=== PATIENT | male | born 1950 | race Two or more races ===

== ENCOUNTER 2017-02-04 16:20 | Emergency (ER) | payer SELFPAY ==
[~2017-02-04] VITALS: Ht 162.6 cm; Wt 65.8 kg
[~2017-02-04 16:20] MED LIST: NKM
[2017-02-04 16:30] VITALS: BP 127/86
[2017-02-04] MEDS ORDERED: Metoclopramide 10mg/2ml Inj IVP ONE (16:30)
[2017-02-04] MEDS ORDERED: Famotidine 20 MG/ 2ML VIAL IVP ONE (16:30)
[2017-02-04] MEDS ORDERED: DiphenhydrAMINE 50mg/ml Inj IVP ONE (16:30)
--- NOTE | 2017-02-04 16:32 | Emergency Room Report ---
History of Present Illness General Chief Complaint: Abdominal Pain Source: Patient Present Illness HPI Patient brought in from the streets by EMS after drinking a large quantity of alcohol for the last several days. He's been vomiting. He says he has some pain in his abdomen also. Epigastric. Does not radiate. Pain is 7/10. Constant. His last drink was 10 AM this morning. Has not vomited blood but in the past he has been seen for problems with vomiting blood. He does have diarrhea this watery. Allergies: Coded Allergies: No Known Allergies (Unverified , 02/04/17) Patient History Past Medical History: see triage record Social History: Reports: alcohol use Social History Narrative streets Reviewed Nursing Documentation: PMH: Agreed, PSxH: Agreed Nursing Documentation-PMH Past Medical History: No Stated History Review of Systems All Other Systems: negative except mentioned in HPI Physical Exam Vital Signs Date Time Temp Pulse Resp B/P Pulse Ox O2 Delivery O2 Flow Rate FiO2 02/04/17 16:14 98.6 120 20 136/80 97 Room Air Sp02 EP Interpretation: reviewed, normal General Appearance: no apparent distress, GCS 15, other - dishevelled Head: normocephalic Eyes: bilateral eye PERRL, bilateral eye Scleral Injection ENT: moist mucus membranes Neck: supple Respiratory: lungs clear, normal breath sounds Cardiovascular #1: regular rate, rhythm Cardiovascular #2: 2+ radial (R) Gastrointestinal: normal bowel sounds, no mass, no guarding, no rebound, distended, tenderness Musculoskeletal: back normal, gait/station normal, normal range of motion Neurologic: alert, oriented x3, grossly normal Psychiatric: mood/affect normal Skin: normal inspection, warm/dry Medical Decision Making Diagnostic Impression: Primary Impression: Abdominal pain Additional Impressions: Alcohol intoxication Hypokalemia ER Course Patient presents with epigastric pain and vomiting after drinking large quantities of alcohol. Differential includes gastritis, GERD, pancreatitis, collar disease, diverticulitis amongst others. He claims is not bleeding this time. Evaluation will be with EKG, abdominal series and labs. He'll be treated IV hydration, Pepcid, Reglan and Benadryl. Laboratory Tests Test 02/04/17 16:25 02/04/17 21:10 White Blood Count 8.7 K/UL (4.8-10.8) Red Blood Count 5.26 M/UL (4.70-6.10) Hemoglobin 14.5 G/DL (14.2-18.0) Hematocrit 43.5 % (42.0-52.0) Mean Corpuscular Volume 83 FL (80-99) Mean Corpuscular Hemoglobin 27.5 PG (27.0-31.0) Mean Corpuscular Hemoglobin Concent 33.3 G/DL (32.0-36.0) Red Cell Distribution Width 15.6 % (11.6-14.8) H Platelet Count 258 K/UL (150-450) Mean Platelet Volume 7.7 FL (6.5-10.1) Neutrophils (%) (Auto) 76.1 % (45.0-75.0) H Lymphocytes (%) (Auto) 18.6 % (20.0-45.0) L Monocytes (%) (Auto) 4.5 % (1.0-10.0) Eosinophils (%) (Auto) 0.0 % (0.0-3.0) Basophils (%) (Auto) 0.7 % (0.0-2.0) Prothrombin Time 9.5 SEC (9.30-11.50) Prothrombin Time INR 0.9 (0.9-1.1) PTT 25 SEC (23-33) Sodium Level 138 mEQ/L (135-145) Potassium Level 3.1 mEQ/L (3.4-4.9) L Chloride Level 89 mEQ/L (98-107) L Carbon Dioxide Level 23 mEQ/L (20-30) Anion Gap 26 (5-15) H Blood Urea Nitrogen 17 mg/dL (7-23) Creatinine 1.4 mg/dL (0.7-1.2) H Estimate Glomerular Filtration Rate 50.9 mL/min (>60) Glucose Level 148 mg/dL (74-106) H Calcium Level 8.7 mg/dL (8.6-10.2) Total Bilirubin 0.7 mg/dL (0.0-1.2) Aspartate Amino Transferase (AST) 48 U/L (5-40) H Alanine Aminotransferase (ALT) 26 U/L (3-41) Alkaline Phosphatase 126 U/L (40-129) Total Creatine Kinase 227 U/L (38-174) H Troponin I < 0.30 ng/mL (<=0.30) Total Protein 8.1 g/dL (6.6-8.7) Albumin 4.2 g/dL (3.5-5.2) Globulin 3.9 g/dL Albumin/Globulin Ratio 1.0 (1.0-2.7) Lipase 67 U/L (< 60) H Serum Alcohol 330 mg/dL Urine Color Yellow Urine Appearance Clear Urine pH 6 (4.5-8.0) Urine Specific [place] 1.020 (1.005-1.035) Urine Protein 3+ (NEGATIVE) H Urine Glucose (UA) Negative (NEGATIVE) Urine Ketones 1+ (NEGATIVE) H Urine Occult Blood 3+ (NEGATIVE) H Urine Nitrite Negative (NEGATIVE) Urine Bilirubin Negative (NEGATIVE) Urine Urobilinogen Normal MG/DL (0.0-1.0) Urine Leukocyte Esterase Negative (NEGATIVE) Urine RBC Pending Urine WBC Pending Urine Squamous Epithelial Cells Pending Urine Bacteria Pending Urine Opiates Screen Pending Urine Barbiturates Screen Pending Phencyclidine (PCP) Screen Pending Urine Amphetamines Screen Pending Urine Benzodiazepines Screen Pending Urine Cocaine Screen Pending Urine Marijuana (THC) Screen Pending EKG Diagnostic Results Rate: tachycardiac ST Segments: no acute changes Rhythm Strip Diag. Results EP Interpretation: yes Rhythm: no PVC's, no ectopy, other - Sinus tachycardia Chest X-Ray Diagnostic Results Chest X-Ray Ordered: Yes # of Views/Limited/Complete: 1 View EP Interpretation: Yes Interpretation: no consolidation, no effusion, no pneumothorax, no acute cardiopulmonary disease Indication: Other Impression: No acute disease Interpreting ER Provider: jose luis Other X-Ray Diagnostic Results # of Views/Limited Vs Complete: 1 View EP Interpretation: Yes Interpretation: other - nsbgp, no masses, colonic gas Indication: Pain Impression: No acute disease Status: improved Disposition: HOME, SELF-CARE Condition: Improved Bronson Carpio M.D. Feb 04, 2017 16:32
[2017-02-04] MEDS ORDERED: Tubing IV Cassette IV ONE (16:42)
[2017-02-04 16:53] LABS: BASOPHILS % (AUTO) 0.7 % (0.0-2.0); LYMPHOCYTES % (AUTO) 18.6 % (20.0-45.0); MEAN CORPUSCULAR HEMOGLOBIN 27.5 PG (27.0-31.0); MEAN CORPUSCULAR HGB CONC 33.3 G/DL (32.0-36.0); MEAN CORPUSCULAR VOLUME 83 FL (80-99); MEAN PLATELET VOLUME 7.7 FL (6.5-10.1); MONOCYTES % (AUTO) 4.5 % (1.0-10.0); NEUTROPHILS % (AUTO) 76.1 % (45.0-75.0); PLATELET COUNT 258 K/UL (150-450); RED BLOOD COUNT 5.26 M/UL (4.70-6.10); RED CELL DISTRIBUTION WIDTH 15.6 % (11.6-14.8); WHITE BLOOD COUNT 8.7 K/UL (4.8-10.8)
[2017-02-04 16:58] LABS: INR 0.9 (0.9-1.1); PROTHROMBIN TIME 9.5 SEC (9.30-11.50)
[2017-02-04 17:03] LABS: ALANINE AMINOTRANSFERASE 26 U/L (3-41); ANION GAP 26 (5-15); ASPARTATE AMINO TRANSFERASE 48 U/L (5-40); CALCIUM 8.7 mg/dL (8.6-10.2); CARBON DIOXIDE 23 mEQ/L (20-30); CHLORIDE 89 mEQ/L (98-107); CREATININE 1.4 mg/dL (0.7-1.2); GLOMERULAR FILTRATION RATE 50.9 mL/min (>60); HEMOLYSIS 8; LIPASE 67 U/L (< 60); POTASSIUM 3.1 mEQ/L (3.4-4.9); SODIUM 138 mEQ/L (135-145); TOTAL PROTEIN 8.1 g/dL (6.6-8.7)
[2017-02-04 17:07] LABS: TROPONIN I < 0.30 ng/mL (<=0.30)
[2017-02-04 18:00] VITALS: BP 112/72
[2017-02-04] MEDS ORDERED: Mylanta II UD 30ml ORAL ONE (21:30)
[2017-02-04 21:46] LABS: APPEARANCE,URINE CLEAR; KETONES,URINE 1+ (NEGATIVE); LEUKOCYTE ESTERASE ,URINE NEGATIVE (NEGATIVE); NITRITE,URINE NEGATIVE (NEGATIVE); PH,URINE 6 (4.5-8.0); PROTEIN,URINE 3+ (NEGATIVE); UROBILINOGEN,URINE NORMAL MG/DL (0.0-1.0)
[2017-02-04 21:59] LABS: RBC,URINE 0-2 /HPF (0 - 0); SQUAMOUS EPITHELIAL CELL,UR FEW /LPF (NONE/OCC)
[2017-02-04] MEDS ORDERED: KCl 10% 20 mEq/15ml liquid ORAL STA (21:59)
[2017-02-04 22:00] LABS: BACTERIA,URINE MODERATE /HPF
[2017-02-04] MEDS ORDERED: PEPCID20 MG ORAL (22:03)
[2017-02-04] MEDS ORDERED: K-TAB10 MEQ PO (22:03)
[2017-02-04] MEDS ORDERED: TYLENOL325 MG ORAL (22:03)
[2017-02-04 23:24] VITALS: BP 136/78
[2017-02-05 01:53] VITALS: BP 154/83
[2017-02-05] MEDS ORDERED: Pantoprazole Inj IVP ONE (02:00)
[2017-02-05 04:50] VITALS: BP 146/84
--- NOTE | 2017-02-05 09:26 | Diagnostic Imaging Report ---
Indication: Cough Technique: One view of the chest Comparison: none Findings: Lungs and pleural spaces are clear. Heart size is normal. Impression: No acute process
--- NOTE | 2017-02-05 11:00 | Diagnostic Imaging Report ---
Indication: ABD PAIN, nausea, vomiting Technique: Supine view of the abdomen Comparison: none Findings: Bowel gas pattern is unremarkable. No unusual masses or calcifications Impression: Negative
--- NOTE | 2017-02-08 20:25 | Cardiology Report ---
APPROVED REPORT EKG Measurement Heart [id number] Sinus tachycardia Otherwise normal ECG
== END 2017-02-05 04:51 | disposition home or self-care (01) ==
LOC: EDBD 16:20 → EMR 17:10
DX: R10.9 Unspecified abdominal pain (principal); F10.129 Alcohol abuse with intoxication, unspecified; E87.6 Hypokalemia; R00.0 Tachycardia, unspecified
CPT/HCPCS: 36415; 71010; 74000; 80053; 80300; 81003; 82550; 83690; 84484; 85025; 85610; 85730; 87086; 87181; 93005; 96360; 96374; 96375; 99284; C9113; G0480; J1200; J2405; J2765; S0028; 80329